=== PATIENT | male | born 1950 | race Caucasian/White ===

== ENCOUNTER 2023-08-14 11:08 | Inpatient (IN) | payer MEDICARE ==
[2023-08-14] MEDS ORDERED: Piperacillin/Tazobactam 3.375 GM in Sodium Chloride 0.9% 100 ML IVPB SCH ×2 (14:15→18:00)
[2023-08-14] MEDS ORDERED: predniSONE 20 MG TAB PO PRN (14:26)
[2023-08-14] MEDS: Acetaminophen 325 MG TAB PO PRN (15:26)
[2023-08-14] MEDS: Lactated Ringer's 1,000 ML IV SCH (15:27)
[2023-08-14] MEDS: Gabapentin 300 MG CAP PO SCH (20:35)
[2023-08-14] MEDS: Piperacillin/Tazobactam 3.375 GM in Sodium Chloride 0.9% 100 ML IVPB SCH (20:36)
[2023-08-14] MEDS: Heparin 5,000 UNITS/ML VIAL SC SCH (20:36)
[2023-08-15] MEDS: Lactated Ringer's 1,000 ML IV SCH ×3 (02:00→22:27)
[2023-08-15] MEDS: Piperacillin/Tazobactam 3.375 GM in Sodium Chloride 0.9% 100 ML IVPB SCH (06:08)
[2023-08-15] MEDS ORDERED: Lisinopril 10 MG TAB PO SCH (09:00)
[2023-08-15] MEDS: Amlodipine 5 MG TAB PO SCH (09:13)
[2023-08-15] MEDS: Saccharomyces boulardii 250 MG CAP PO SCH (09:13)
[2023-08-15] MEDS: Vancomycin HCl 125 MG Capsule PO SCH ×3 (09:13→21:12)
[2023-08-15] MEDS: Allopurinol 100 MG TAB PO SCH (09:13)
[2023-08-15] MEDS: Heparin 5,000 UNITS/ML VIAL SC SCH ×2 (09:13→21:12)
[2023-08-15] MEDS: Hydroxychloroquine Sulfate 200 MG TAB PO SCH (09:13)
[2023-08-15] MEDS: Dicyclomine 10 MG CAP PO SCH ×3 (13:16→21:12)
[2023-08-15] MEDS ORDERED: HYDROcodone/Acetaminophen 5/325 mg Tablet PO PRN (13:17)
[2023-08-15 13:29] LABS: Hematocrit 52.3 % (42.0-52.0); Hemoglobin 16.8 g/dL (14.0-18.0); Manual Diff?? YES; Mean Corpuscular HGB CONC 32.1 g/dL (32.0-36.0); Mean Corpuscular Hemoglobin 29.7 pg (27.0-31.0); Mean Corpuscular Volume 92.4 fl (78.0-98.0); Mean Platelet Volume 12.2 fL (7.4-10.4); Platelet Count 192 10x3/uL (130-400); RBC Distribution Width 16.1 % (11.5-14.5); Red Blood Cell (RBC) Count 5.66 mill/uL (4.70-6.10); White Blood Cell (WBC) Count 32.9 10x3/uL (4.8-10.8)
[2023-08-15 13:34] LABS: Delete Auto Diff?? YES
[2023-08-15 13:53] LABS: Anion Gap 21 mmol/L (10-20); BUN (Urea Nitrogen) 42 mg/dL (8.4-25.7); Calc. Creatinine Clearance 17 mL/min (70-130); Calcium 7.6 mg/dL (7.8-10.44); Carbon Dioxide 14 mmol/L (23-31); Chloride 105 mmol/L (98-107); Estimated GFR 12; Glucose 230 mg/dL (83-110); Potassium 5.3 mmol/L (3.5-5.1); Sodium 135 mmol/L (136-145)
[2023-08-15 14:03] LABS: Band 41 % (5-11); CellaVision Operator ID LAB.KB; Large Platelets 3.9 % (0-5); Lymphocytes 2 % (21-51); Monocytes 10 % (0-10); Neutrophil 45 % (42-75); Platelet Adequacy Comment Platelets Normal; Reactive Lymphocytes 2 % (0-10); Rouleaux Formation SLIGHT = 1-5 cells HPF (None Seen); Smudge Cells 2.9 %; Total Cell Count 102
[2023-08-15] MEDS: Gabapentin 300 MG CAP PO SCH (21:12)
[2023-08-16] MEDS: Vancomycin HCl 125 MG Capsule PO SCH ×4 (02:37→21:03)
[2023-08-16] MEDS: Lactated Ringer's 1,000 ML IV SCH (06:04)
[2023-08-16 08:05] LABS: Hematocrit 47.8 % (42.0-52.0); Manual Diff?? YES; Mean Corpuscular HGB CONC 33.5 g/dL (32.0-36.0); Mean Corpuscular Hemoglobin 30.8 pg (27.0-31.0); Mean Corpuscular Volume 91.9 fl (78.0-98.0); Mean Platelet Volume 11.5 fL (7.4-10.4); Platelet Count 187 10x3/uL (130-400); RBC Distribution Width 16.2 % (11.5-14.5); White Blood Cell (WBC) Count 35.3 10x3/uL (4.8-10.8)
[2023-08-16 08:14] LABS: Delete Auto Diff?? YES
[2023-08-16 08:33] LABS: Anion Gap 16 mmol/L (10-20); BUN (Urea Nitrogen) 51 mg/dL (8.4-25.7); Calc. Creatinine Clearance 15 mL/min (70-130); Calcium 7.7 mg/dL (7.8-10.44); Carbon Dioxide 16 mmol/L (23-31); Chloride 107 mmol/L (98-107); Estimated GFR 11; Glucose 186 mg/dL (83-110); Potassium 5.6 mmol/L (3.5-5.1); Sodium 133 mmol/L (136-145)
[2023-08-16] MEDS: Heparin 5,000 UNITS/ML VIAL SC SCH ×2 (08:40→21:03)
[2023-08-16] MEDS: Hydroxychloroquine Sulfate 200 MG TAB PO SCH (08:40)
[2023-08-16] MEDS: Dicyclomine 10 MG CAP PO SCH ×4 (08:40→21:03)
[2023-08-16] MEDS: Saccharomyces boulardii 250 MG CAP PO SCH (08:41)
[2023-08-16] MEDS: Amlodipine 5 MG TAB PO SCH (08:41)
[2023-08-16] MEDS ORDERED: Glucagon 1 MG/ML KIT IM PRN (08:43)
[2023-08-16] MEDS ORDERED: Dextrose 5% in Water 1,000 ML IV PRN (08:43)
[2023-08-16] MEDS ORDERED: Dextrose 50% Abboject 50 ML SYRINGE SLOW IVP PRN (08:43)
[2023-08-16] MEDS ORDERED: Insulin Regular 300 UNITS/3 ML VIAL IVP SCH (08:45)
[2023-08-16 08:48] LABS: Band 18 % (5-11); CellaVision Operator ID LAB.KW3; Lymphocytes 3 % (21-51); Monocytes 8 % (0-10); Neutrophil 71 % (42-75); Platelet Adequacy Comment Platelets Normal; Polychromasia SLIGHT = 2-3 cells HPF (0-2); Total Cell Count 100
[2023-08-16] MEDS ORDERED: CALCIUM GLUC 1 GM/NS 50 ML 1 GM in Premix 1 BAG IVPB SCH (09:00)
[2023-08-16] MEDS ORDERED: LOKELMA 10 GM PACKET PO SCH (09:30)
[2023-08-16] MEDS ORDERED: LOKELMA 5 GM PACKET PO SCH (09:45)
[2023-08-16] MEDS: Sodium Bicarbonate Tab 325 MG TAB PO SCH ×2 (09:51→21:03)
[2023-08-16] MEDS: Sodium Bicarbonate 75 MEQ in Dextrose 5 %-0.45 % NaCl 1,000 ML IV SCH ×2 (11:06→21:02)
[2023-08-16 12:14] LABS: Chloride 107 mmol/L (98-107); Potassium 4.8 mmol/L (3.5-5.1); Sodium 135 mmol/L (136-145)
[2023-08-16 12:15] LABS: Calcium 7.9 mg/dL (7.8-10.44); Glucose 96 mg/dL (83-110)
[2023-08-16 12:17] LABS: Anion Gap 17 mmol/L (10-20); Carbon Dioxide 16 mmol/L (23-31)
[2023-08-16 12:18] LABS: Calc. Creatinine Clearance 16 mL/min (70-130); Estimated GFR 12
[2023-08-16 12:19] LABS: BUN (Urea Nitrogen) 51 mg/dL (8.4-25.7)
[2023-08-16] MEDS: HumaLOG 300 UNITS/3 ML VIAL SC PRN (17:38)
[2023-08-16] MEDS: Gabapentin 300 MG CAP PO SCH (21:03)
[2023-08-17] MEDS: Vancomycin HCl 125 MG Capsule PO SCH ×4 (03:54→21:46)
[2023-08-17 04:21] LABS: Hematocrit 41.9 % (42.0-52.0); Manual Diff?? YES; Mean Corpuscular HGB CONC 33.4 g/dL (32.0-36.0); Mean Corpuscular Hemoglobin 30.4 pg (27.0-31.0); Mean Corpuscular Volume 90.9 fl (78.0-98.0); Mean Platelet Volume 11.6 fL (7.4-10.4); Platelet Count 204 10x3/uL (130-400); RBC Distribution Width 16.2 % (11.5-14.5); Red Blood Cell (RBC) Count 4.61 mill/uL (4.70-6.10); White Blood Cell (WBC) Count 29.8 10x3/uL (4.8-10.8)
[2023-08-17] MEDS: Sodium Bicarbonate 75 MEQ in Dextrose 5 %-0.45 % NaCl 1,000 ML IV SCH ×3 (04:28→21:45)
[2023-08-17 04:31] LABS: Delete Auto Diff?? YES
[2023-08-17 04:44] LABS: Anion Gap 14 mmol/L (10-20); BUN (Urea Nitrogen) 57 mg/dL (8.4-25.7); Calc. Creatinine Clearance 19 mL/min (70-130); Calcium 7.2 mg/dL (7.8-10.44); Carbon Dioxide 19 mmol/L (23-31); Chloride 103 mmol/L (98-107); Estimated GFR 14; Glucose 194 mg/dL (83-110); Potassium 4.7 mmol/L (3.5-5.1); Sodium 131 mmol/L (136-145)
[2023-08-17 05:11] LABS: Band 6 % (5-11); CellaVision Operator ID LAB.JMM; Lymphocytes 2 % (21-51); Macrocytosis SLIGHT = 6-15 cells HPF (0-5); Metamyelocyte 3 % (0-0); Monocytes 6 % (0-10); Myelocyte 2 % (0-0); Neutrophil 81 % (42-75); Platelet Adequacy Comment Platelets Normal; Polychromasia SLIGHT = 2-3 cells HPF (0-2); Smudge Cells 11.8 %; Total Cell Count 102
[2023-08-17 05:17] LABS: Hemoglobin A1c 6.7 % (4.0-6.0)
[2023-08-17] MEDS: Saccharomyces boulardii 250 MG CAP PO SCH (07:53)
[2023-08-17] MEDS: Heparin 5,000 UNITS/ML VIAL SC SCH ×2 (07:53→21:46)
[2023-08-17] MEDS: Amlodipine 5 MG TAB PO SCH (07:53)
[2023-08-17] MEDS: Sodium Bicarbonate Tab 325 MG TAB PO SCH ×2 (07:53→21:46)
[2023-08-17] MEDS: Dicyclomine 10 MG CAP PO SCH ×4 (07:54→21:46)
[2023-08-17] MEDS: Hydroxychloroquine Sulfate 200 MG TAB PO SCH (07:54)
[2023-08-17] MEDS: Allopurinol 100 MG TAB PO SCH (07:54)
[2023-08-17] MEDS: HumaLOG 300 UNITS/3 ML VIAL SC PRN (11:52)
[2023-08-17] MEDS: Gabapentin 300 MG CAP PO SCH (21:46)
[2023-08-17 23:37] LABS: Adenovirus F 40-41 Not Detected (Not Detected); Astrovirus Not Detected (Not Detected); C. difficile toxin A+B DETECTED (Not Detected); Campylobacter by PCR Not Detected (Not Detected); Cryptosporidium Not Detected (Not Detected); Cyclospora cayetanensis Not Detected (Not Detected); Entamoeba histolytica Not Detected (Not Detected); Enteroaggregative E. coli Not Detected (Not Detected); Enteropathogenic E. coli Not Detected (Not Detected); Enterotoxigenic E. coli Not Detected (Not Detected); Giardia lamblia Not Detected (Not Detected); Norovirus GI-GII Not Detected (Not Detected); Plesiomonas shigelloides Not Detected (Not Detected); Rotavirus A Not Detected (Not Detected); Salmonella Not Detected (Not Detected); Sapovirus Not Detected (Not Detected); Shiga-toxin-producing E coli Not Detected (Not Detected); Shigella/Enteroinvasive E coli Not Detected (Not Detected); Vibrio Not Detected (Not Detected); Vibrio cholerae Not Detected (Not Detected); Yersinia enterocolitica Not Detected (Not Detected)
[2023-08-18] MEDS: Vancomycin HCl 125 MG Capsule PO SCH ×4 (02:15→19:33)
[2023-08-18 05:24] LABS: Hemoglobin 14.3 g/dL (14.0-18.0); Manual Diff?? YES; Mean Corpuscular HGB CONC 31.8 g/dL (32.0-36.0); Mean Corpuscular Hemoglobin 30.1 pg (27.0-31.0); Mean Corpuscular Volume 94.7 fl (78.0-98.0); Mean Platelet Volume 11.5 fL (7.4-10.4); Platelet Count 190 10x3/uL (130-400); Red Blood Cell (RBC) Count 4.75 mill/uL (4.70-6.10); White Blood Cell (WBC) Count 21.4 10x3/uL (4.8-10.8)
[2023-08-18 05:28] LABS: Delete Auto Diff?? YES
[2023-08-18] MEDS: Sodium Bicarbonate 75 MEQ in Dextrose 5 %-0.45 % NaCl 1,000 ML IV SCH ×2 (06:00→15:13)
[2023-08-18] MEDS: HumaLOG 300 UNITS/3 ML VIAL SC PRN (06:01)
[2023-08-18 06:10] LABS: Band 2 % (5-11); Burr Cells SLIGHT = 2-5 cells HPF (0-1); CellaVision Operator ID lab.abc; Eosinophils 1 % (0-10); Lymphocytes 5 % (21-51); Monocytes 8 % (0-10); Neutrophil 84 % (42-75); Platelet Adequacy Comment Platelets Normal; Polychromasia SLIGHT = 2-3 cells HPF (0-2); Smudge Cells 14.1 %; Total Cell Count 99
[2023-08-18 07:20] LABS: BUN (Urea Nitrogen) 57 mg/dL (8.4-25.7); Calc. Creatinine Clearance 24 mL/min (70-130); Carbon Dioxide 15 mmol/L (23-31); Chloride 104 mmol/L (98-107); Estimated GFR 20; Glucose 156 mg/dL (83-110); Potassium 4.6 mmol/L (3.5-5.1); Sodium 132 mmol/L (136-145)
[2023-08-18 07:22] LABS: Anion Gap 18 mmol/L (10-20)
[2023-08-18] MEDS: Amlodipine 5 MG TAB PO SCH (08:58)
[2023-08-18] MEDS: Hydroxychloroquine Sulfate 200 MG TAB PO SCH (08:58)
[2023-08-18] MEDS: Dicyclomine 10 MG CAP PO SCH ×4 (08:58→19:33)
[2023-08-18] MEDS: Heparin 5,000 UNITS/ML VIAL SC SCH ×2 (08:58→19:33)
[2023-08-18] MEDS: Sodium Bicarbonate Tab 325 MG TAB PO SCH ×2 (08:58→19:33)
[2023-08-18] MEDS: Saccharomyces boulardii 250 MG CAP PO SCH (08:58)
[2023-08-18] MEDS: Gabapentin 300 MG CAP PO SCH (19:33)
[2023-08-19] MEDS: Sodium Bicarbonate 75 MEQ in Dextrose 5 %-0.45 % NaCl 1,000 ML IV SCH ×4 (00:27→18:47)
[2023-08-19] MEDS: Vancomycin HCl 125 MG Capsule PO SCH ×4 (04:01→21:33)
[2023-08-19] MEDS: HumaLOG 300 UNITS/3 ML VIAL SC PRN ×2 (06:19→17:08)
[2023-08-19 06:40] LABS: Hematocrit 45.4 % (42.0-52.0); Hemoglobin 14.4 g/dL (14.0-18.0); Manual Diff?? YES; Mean Corpuscular HGB CONC 31.7 g/dL (32.0-36.0); Mean Corpuscular Hemoglobin 29.8 pg (27.0-31.0); Mean Platelet Volume 11.3 fL (7.4-10.4); Platelet Count 222 10x3/uL (130-400); RBC Distribution Width 15.9 % (11.5-14.5); Red Blood Cell (RBC) Count 4.83 mill/uL (4.70-6.10); White Blood Cell (WBC) Count 14.3 10x3/uL (4.8-10.8)
[2023-08-19 07:01] LABS: Delete Auto Diff?? YES
[2023-08-19 07:11] LABS: Anion Gap 17 mmol/L (10-20); BUN (Urea Nitrogen) 50 mg/dL (8.4-25.7); Calc. Creatinine Clearance 31 mL/min (70-130); Carbon Dioxide 19 mmol/L (23-31); Chloride 102 mmol/L (98-107); Estimated GFR 27; Glucose 186 mg/dL (83-110); Potassium 4.2 mmol/L (3.5-5.1); Sodium 134 mmol/L (136-145)
[2023-08-19 07:39] LABS: Calcium 6.7 mg/dL (7.8-10.44)
[2023-08-19 07:49] LABS: Band 12 % (5-11); CellaVision Operator ID LAB.KW3; Lymphocytes 5 % (21-51); Monocytes 2 % (0-10); Neutrophil 81 % (42-75); Platelet Adequacy Comment Platelets Normal; Polychromasia SLIGHT = 2-3 cells HPF (0-2); Total Cell Count 101
[2023-08-19] MEDS ORDERED: Calcium Gluconate 4.6 MEQ in Sodium Chloride 0.9% 100 ML IVPB SCH (08:09)
[2023-08-19] MEDS: Saccharomyces boulardii 250 MG CAP PO SCH (09:01)
[2023-08-19] MEDS: Sodium Bicarbonate Tab 325 MG TAB PO SCH ×2 (09:01→21:33)
[2023-08-19] MEDS: Dicyclomine 10 MG CAP PO SCH ×4 (09:01→21:33)
[2023-08-19] MEDS: Allopurinol 100 MG TAB PO SCH (09:01)
[2023-08-19] MEDS: Hydroxychloroquine Sulfate 200 MG TAB PO SCH (09:02)
[2023-08-19] MEDS: Amlodipine 5 MG TAB PO SCH (09:02)
[2023-08-19] MEDS: Heparin 5,000 UNITS/ML VIAL SC SCH ×2 (09:02→21:34)
[2023-08-19] MEDS: Gabapentin 300 MG CAP PO SCH (21:32)
[2023-08-20 00:22] LABS: Phosphorus 3.4 mg/dL (2.3-4.7)
[2023-08-20] MEDS: Vancomycin HCl 125 MG Capsule PO SCH ×4 (02:42→20:26)
[2023-08-20] MEDS: Sodium Bicarbonate 75 MEQ in Dextrose 5 %-0.45 % NaCl 1,000 ML IV SCH ×2 (02:44→12:32)
[2023-08-20 05:05] LABS: Hematocrit 46.6 % (42.0-52.0); Hemoglobin 15.3 g/dL (14.0-18.0); Manual Diff?? YES; Mean Corpuscular HGB CONC 32.8 g/dL (32.0-36.0); Mean Corpuscular Hemoglobin 30.3 pg (27.0-31.0); Mean Corpuscular Volume 92.3 fl (78.0-98.0); Mean Platelet Volume 11.2 fL (7.4-10.4); Platelet Count 237 10x3/uL (130-400); RBC Distribution Width 15.6 % (11.5-14.5); Red Blood Cell (RBC) Count 5.05 mill/uL (4.70-6.10); White Blood Cell (WBC) Count 17.2 10x3/uL (4.8-10.8)
[2023-08-20 05:09] LABS: Delete Auto Diff?? YES
[2023-08-20 05:18] LABS: Anion Gap 16 mmol/L (10-20); BUN (Urea Nitrogen) 38 mg/dL (8.4-25.7); Calc. Creatinine Clearance 39 mL/min (70-130); Carbon Dioxide 23 mmol/L (23-31); Chloride 99 mmol/L (98-107); Estimated GFR 35; Glucose 175 mg/dL (83-110); Potassium 4.1 mmol/L (3.5-5.1); Sodium 134 mmol/L (136-145)
[2023-08-20 05:21] LABS: Calcium 6.7 mg/dL (7.8-10.44); Critical Call Chemistry NUR.BR6@0521
[2023-08-20] MEDS: HumaLOG 300 UNITS/3 ML VIAL SC PRN (06:30)
[2023-08-20 06:47] LABS: Anisocytosis SLIGHT = 6-15 cells HPF (0-5); Band 2 % (5-11); CellaVision Operator ID lab.sh2; Eosinophils 1 % (0-10); Lymphocytes 7 % (21-51); Monocytes 7 % (0-10); Neutrophil 83 % (42-75); Platelet Adequacy Comment Platelets Normal; Polychromasia SLIGHT = 2-3 cells HPF (0-2); Stomatocytes SLIGHT = 2-5 cells HPF (0-1); Total Cell Count 100
[2023-08-20] MEDS ORDERED: CALCIUM GLUC 1 GM/NS 50 ML 1 GM in Premix 1 BAG IVPB SCH (08:15)
[2023-08-20] MEDS: Sodium Bicarbonate Tab 325 MG TAB PO SCH ×2 (09:12→20:25)
[2023-08-20] MEDS: Dicyclomine 10 MG CAP PO SCH ×4 (09:13→20:25)
[2023-08-20] MEDS: Saccharomyces boulardii 250 MG CAP PO SCH (09:13)
[2023-08-20] MEDS: Hydroxychloroquine Sulfate 200 MG TAB PO SCH (09:13)
[2023-08-20] MEDS: Amlodipine 5 MG TAB PO SCH (09:13)
[2023-08-20] MEDS: Heparin 5,000 UNITS/ML VIAL SC SCH ×2 (09:14→20:26)
[2023-08-20] MEDS ORDERED: Sodium Bicarbonate 75 MEQ in Dextrose 5 %-0.45 % NaCl 1,000 ML IV SCH (10:27)
[2023-08-20] MEDS: Sodium Chloride 0.9% 1,000 ML IV SCH (11:49)
[2023-08-20] MEDS: Gabapentin 300 MG CAP PO SCH (20:26)
[2023-08-21] MEDS: Sodium Chloride 0.9% 1,000 ML IV SCH ×3 (02:20→12:41)
[2023-08-21] MEDS: Vancomycin HCl 125 MG Capsule PO SCH ×4 (02:24→20:34)
[2023-08-21] MEDS: Melatonin 3 MG TAB PO PRN ×2 (03:17→20:34)
[2023-08-21] MEDS: Allopurinol 100 MG TAB PO SCH (08:12)
[2023-08-21] MEDS: Sodium Bicarbonate Tab 325 MG TAB PO SCH ×2 (08:12→20:33)
[2023-08-21] MEDS: Amlodipine 5 MG TAB PO SCH (08:12)
[2023-08-21] MEDS: Heparin 5,000 UNITS/ML VIAL SC SCH ×2 (08:12→20:35)
[2023-08-21] MEDS: Saccharomyces boulardii 250 MG CAP PO SCH (08:12)
[2023-08-21] MEDS: Hydroxychloroquine Sulfate 200 MG TAB PO SCH (08:12)
[2023-08-21] MEDS: Dicyclomine 10 MG CAP PO SCH ×4 (09:58→20:35)
[2023-08-21 10:53] LABS: #Basophils 0.1 thou/uL (0.0-0.2); #Eosinphils 0.1 thou/uL (0.0-0.7); #Monocytes 1.9 thou/uL (0.11-0.59); #Neutrophils 18.5 thou/uL (1.40-6.50); %Basophils 0.3 % (0.0-1.0); %Eosinophils 0.3 % (0.0-10.0); %Lymphocytes 4.6 % (21.0-51.0); %Monocytes 8.7 % (0.0-10.0); %Neutrophils 84.1 % (42.0-75.0); Hematocrit 45.3 % (42.0-52.0); Hemoglobin 14.6 g/dL (14.0-18.0); Mean Corpuscular HGB CONC 32.2 g/dL (32.0-36.0); Mean Corpuscular Hemoglobin 30.2 pg (27.0-31.0); Mean Corpuscular Volume 93.6 fl (78.0-98.0); Mean Platelet Volume 10.6 fL (7.4-10.4); Platelet Count 309 10x3/uL (130-400); RBC Distribution Width 15.6 % (11.5-14.5); Red Blood Cell (RBC) Count 4.84 mill/uL (4.70-6.10)
[2023-08-21 11:21] LABS: Anion Gap 17 mmol/L (10-20); BUN (Urea Nitrogen) 33 mg/dL (8.4-25.7); Calc. Creatinine Clearance 42 mL/min (70-130); Calcium 7.1 mg/dL (7.8-10.44); Carbon Dioxide 25 mmol/L (23-31); Chloride 98 mmol/L (98-107); Estimated GFR 38; Glucose 107 mg/dL (83-110); Potassium 4.4 mmol/L (3.5-5.1); Sodium 136 mmol/L (136-145)
[2023-08-21] MEDS: metroNIDAZOLE 500 MG in Premix 1 BAG IVPB SCH ×2 (13:09→20:34)
[2023-08-21] MEDS: Acetaminophen 325 MG TAB PO PRN (17:48)
[2023-08-21] MEDS: Gabapentin 300 MG CAP PO SCH (20:34)
[2023-08-22] MEDS: Sodium Chloride 0.9% 1,000 ML IV SCH (02:16)
[2023-08-22] MEDS: Acetaminophen 325 MG TAB PO PRN ×2 (05:16→20:54)
[2023-08-22] MEDS: metroNIDAZOLE 500 MG in Premix 1 BAG IVPB SCH ×3 (05:16→22:00)
[2023-08-22] MEDS ORDERED: HYDROcodone/Acetaminophen 5/325 mg Tablet PO PRN (08:24)
[2023-08-22] MEDS: Hydroxychloroquine Sulfate 200 MG TAB PO SCH (08:48)
[2023-08-22] MEDS: Saccharomyces boulardii 250 MG CAP PO SCH (08:49)
[2023-08-22] MEDS: Amlodipine 5 MG TAB PO SCH (08:50)
[2023-08-22] MEDS: Vancomycin HCl 125 MG Capsule PO SCH ×4 (08:50→20:54)
[2023-08-22] MEDS: Heparin 5,000 UNITS/ML VIAL SC SCH ×2 (08:51→20:53)
[2023-08-22] MEDS: Dicyclomine 10 MG CAP PO SCH ×4 (08:51→20:53)
[2023-08-22] MEDS: Sodium Bicarbonate Tab 325 MG TAB PO SCH (08:52)
[2023-08-22 09:00] LABS: Hematocrit 42.6 % (42.0-52.0); Hemoglobin 14.1 g/dL (14.0-18.0); Manual Diff?? YES; Mean Corpuscular HGB CONC 33.1 g/dL (32.0-36.0); Mean Corpuscular Hemoglobin 30.5 pg (27.0-31.0); Mean Corpuscular Volume 92.2 fl (78.0-98.0); Mean Platelet Volume 10.2 fL (7.4-10.4); Platelet Count 371 10x3/uL (130-400); RBC Distribution Width 15.5 % (11.5-14.5); Red Blood Cell (RBC) Count 4.62 mill/uL (4.70-6.10); White Blood Cell (WBC) Count 25.1 10x3/uL (4.8-10.8)
[2023-08-22 09:17] LABS: ALT (SGPT) 29 U/L (8-55); AST (SGOT) 30 U/L (5-34); Albumin 2.6 g/dL (3.4-4.8); Alkaline Phosphatase 78 U/L (40-110); Anion Gap 15 mmol/L (10-20); BUN (Urea Nitrogen) 35 mg/dL (8.4-25.7); Bilirubin, Total 0.7 mg/dL (0.2-1.2); CRP (Inflammatory) 8.82 mg/dL (= or < 0.5); Calc. Creatinine Clearance 42 mL/min (70-130); Calcium 7.4 mg/dL (7.8-10.44); Carbon Dioxide 27 mmol/L (23-31); Chloride 98 mmol/L (98-107); Estimated GFR 39; Glucose 141 mg/dL (83-110); Potassium 4.5 mmol/L (3.5-5.1); Protein, Total 4.6 g/dL (5.8-8.1); Sodium 135 mmol/L (136-145)
[2023-08-22 09:28] LABS: Delete Auto Diff?? YES
[2023-08-22 10:05] LABS: Anisocytosis SLIGHT = 6-15 cells HPF (0-5); Band 1 % (5-11); CellaVision Operator ID LAB.NR; Eosinophils 1 % (0-10); Lymphocytes 1 % (21-51); Monocytes 4 % (0-10); Neutrophil 93 % (42-75); Platelet Adequacy Comment Platelets Normal; Polychromasia SLIGHT = 2-3 cells HPF (0-2); Total Cell Count 100
[2023-08-22] MEDS: Morphine 2 MG/ML VIAL SLOW IVP PRN (13:49)
[2023-08-22] MEDS ORDERED: Tamsulosin HCl 0.4 MG CAP PO SCH (16:45)
[2023-08-22] MEDS ORDERED: Mag-Al 1200 mg/1200 mg/30 ML UDCUP PO PRN (16:48)
[2023-08-22] MEDS: Gabapentin 300 MG CAP PO SCH (20:53)
[2023-08-22] MEDS: Albumin 25% 25 GM (100 mL) BOT IVPB SCH (20:54)
[2023-08-22] MEDS: Melatonin 3 MG TAB PO PRN (20:54)
[2023-08-23] MEDS: metroNIDAZOLE 500 MG in Premix 1 BAG IVPB SCH ×3 (05:25→21:58)
[2023-08-23 07:07] LABS: #Eosinphils 0.1 thou/uL (0.0-0.7); #Monocytes 1.8 thou/uL (0.11-0.59); #Neutrophils 18.9 thou/uL (1.40-6.50); %Basophils 0.1 % (0.0-1.0); %Eosinophils 0.5 % (0.0-10.0); %Lymphocytes 4.9 % (21.0-51.0); %Neutrophils 85.6 % (42.0-75.0); Hematocrit 39.5 % (42.0-52.0); Hemoglobin 12.9 g/dL (14.0-18.0); Mean Corpuscular HGB CONC 32.7 g/dL (32.0-36.0); Mean Corpuscular Hemoglobin 30.4 pg (27.0-31.0); Mean Corpuscular Volume 92.9 fl (78.0-98.0); Mean Platelet Volume 10.4 fL (7.4-10.4); Platelet Count 313 10x3/uL (130-400); RBC Distribution Width 15.3 % (11.5-14.5); Red Blood Cell (RBC) Count 4.25 mill/uL (4.70-6.10)
[2023-08-23 07:32] LABS: ALT (SGPT) 21 U/L (8-55); AST (SGOT) 25 U/L (5-34); Albumin 2.8 g/dL (3.4-4.8); Alkaline Phosphatase 65 U/L (40-110); Anion Gap 15 mmol/L (10-20); BUN (Urea Nitrogen) 34 mg/dL (8.4-25.7); Bilirubin, Total 0.7 mg/dL (0.2-1.2); Calc. Creatinine Clearance 38 mL/min (70-130); Calcium 7.5 mg/dL (7.8-10.44); Carbon Dioxide 27 mmol/L (23-31); Chloride 99 mmol/L (98-107); Estimated GFR 34; Globulin 1.8 g/dL (2.4-3.5); Glucose 116 mg/dL (83-110); Magnesium 2.1 mg/dL (1.6-2.6); Potassium 4.3 mmol/L (3.5-5.1); Protein, Total 4.6 g/dL (5.8-8.1); Sodium 137 mmol/L (136-145)
[2023-08-23] MEDS: Albumin 25% 25 GM (100 mL) BOT IVPB SCH ×3 (09:41→20:18)
[2023-08-23] MEDS: Saccharomyces boulardii 250 MG CAP PO SCH (09:41)
[2023-08-23] MEDS: Vancomycin HCl 125 MG Capsule PO SCH ×5 (09:41→20:18)
[2023-08-23] MEDS: Amlodipine 5 MG TAB PO SCH (09:41)
[2023-08-23] MEDS: Heparin 5,000 UNITS/ML VIAL SC SCH ×2 (09:41→20:18)
[2023-08-23] MEDS: Dicyclomine 10 MG CAP PO SCH ×4 (09:41→20:18)
[2023-08-23] MEDS: Tamsulosin HCl 0.4 MG CAP PO SCH (09:41)
[2023-08-23] MEDS: Hydroxychloroquine Sulfate 200 MG TAB PO SCH (09:41)
[2023-08-23] MEDS: Allopurinol 100 MG TAB PO SCH (09:41)
[2023-08-23] MEDS: Acetaminophen 325 MG TAB PO PRN (10:01)
[2023-08-23] MEDS ORDERED: Acetaminophen 500 MG TAB PO PRN (10:19)
[2023-08-23] MEDS ORDERED: Sodium Chloride 0.9% 1,000 ML IV SCH (10:30)
[2023-08-23] MEDS ORDERED: Vancomycin HCl 125 MG Capsule PO SCH (13:00)
[2023-08-23] MEDS: Morphine 2 MG/ML VIAL SLOW IVP PRN (14:25)
[2023-08-23] MEDS ORDERED: Furosemide 40 MG (4 mL) VIAL SLOW IVP SCH (17:45)
[2023-08-23] MEDS ORDERED: Ipratropium/Albuterol 3 ML NEB NEB SCH (17:45)
[2023-08-23] MEDS: Cefepime 2 GM in Sodium Chloride 0.9% 100 ML IVPB SCH (18:03)
[2023-08-23] MEDS: Gabapentin 300 MG CAP PO SCH (20:17)
[2023-08-23] MEDS ORDERED: Ipratropium/Albuterol 3 ML NEB NEB PRN (23:40)
[2023-08-24 04:18] LABS: #Basophils 0.1 thou/uL (0.0-0.2); #Monocytes 2.2 thou/uL (0.11-0.59); #Neutrophils 19.9 thou/uL (1.40-6.50); %Basophils 0.2 % (0.0-1.0); %Eosinophils 0.1 % (0.0-10.0); %Lymphocytes 3.3 % (21.0-51.0); %Monocytes 9.4 % (0.0-10.0); %Neutrophils 86.3 % (42.0-75.0); Hematocrit 35.7 % (42.0-52.0); Hemoglobin 11.6 g/dL (14.0-18.0); Mean Corpuscular HGB CONC 32.5 g/dL (32.0-36.0); Mean Corpuscular Hemoglobin 30.3 pg (27.0-31.0); Mean Corpuscular Volume 93.2 fl (78.0-98.0); Mean Platelet Volume 10.2 fL (7.4-10.4); Platelet Count 315 10x3/uL (130-400); RBC Distribution Width 15.5 % (11.5-14.5); Red Blood Cell (RBC) Count 3.83 mill/uL (4.70-6.10); White Blood Cell (WBC) Count 23.1 10x3/uL (4.8-10.8)
[2023-08-24 05:01] LABS: Anion Gap 19 mmol/L (10-20); BUN (Urea Nitrogen) 32 mg/dL (8.4-25.7); Calc. Creatinine Clearance 37 mL/min (70-130); Calcium 7.9 mg/dL (7.8-10.44); Carbon Dioxide 24 mmol/L (23-31); Chloride 100 mmol/L (98-107); Estimated GFR 32; Glucose 131 mg/dL (83-110); Potassium 3.9 mmol/L (3.5-5.1); Sodium 139 mmol/L (136-145)
[2023-08-24] MEDS: metroNIDAZOLE 500 MG in Premix 1 BAG IVPB SCH ×3 (05:47→21:53)
[2023-08-24] MEDS: Furosemide 40 MG (4 mL) VIAL SLOW IVP SCH ×2 (05:47→15:31)
[2023-08-24] MEDS: Cefepime 2 GM in Sodium Chloride 0.9% 100 ML IVPB SCH (05:47)
[2023-08-24] MEDS: Vancomycin HCl 125 MG Capsule PO SCH ×3 (10:02→21:53)
[2023-08-24] MEDS: Saccharomyces boulardii 250 MG CAP PO SCH (10:02)
[2023-08-24] MEDS: Hydroxychloroquine Sulfate 200 MG TAB PO SCH (10:03)
[2023-08-24] MEDS: Heparin 5,000 UNITS/ML VIAL SC SCH ×2 (10:03→21:53)
[2023-08-24] MEDS: Tamsulosin HCl 0.4 MG CAP PO SCH (10:03)
[2023-08-24] MEDS: Amlodipine 5 MG TAB PO SCH (10:03)
[2023-08-24] MEDS: Dicyclomine 10 MG CAP PO SCH ×4 (10:08→21:52)
[2023-08-24] MEDS ORDERED: predniSONE 20 MG TAB PO SCH (11:15)
[2023-08-24] MEDS: Albumin 25% 25 GM (100 mL) BOT IVPB SCH ×2 (11:38→19:35)
[2023-08-24] MEDS ORDERED: cefTRIAXone\\ROCEPHIN 2 GM in Sodium Chloride 0.9% 100 ML IVPB SCH (17:00)
[2023-08-24] MEDS: HumaLOG 300 UNITS/3 ML VIAL SC PRN (18:01)
[2023-08-24] MEDS: Gabapentin 300 MG CAP PO SCH (21:53)
[2023-08-25] MEDS: Albumin 25% 25 GM (100 mL) BOT IVPB SCH ×2 (01:35→07:26)
[2023-08-25 04:46] LABS: #Monocytes 1.5 thou/uL (0.11-0.59); #Neutrophils 17.7 thou/uL (1.40-6.50); %Basophils 0.1 % (0.0-1.0); %Lymphocytes 2.7 % (21.0-51.0); %Monocytes 7.7 % (0.0-10.0); %Neutrophils 88.6 % (42.0-75.0); Hematocrit 34.8 % (42.0-52.0); Hemoglobin 11.2 g/dL (14.0-18.0); Mean Corpuscular HGB CONC 32.2 g/dL (32.0-36.0); Mean Corpuscular Hemoglobin 29.9 pg (27.0-31.0); Mean Platelet Volume 10.4 fL (7.4-10.4); Platelet Count 300 10x3/uL (130-400); RBC Distribution Width 15.6 % (11.5-14.5); Red Blood Cell (RBC) Count 3.74 mill/uL (4.70-6.10)
[2023-08-25 05:57] LABS: Anion Gap 20 mmol/L (10-20); BUN (Urea Nitrogen) 33 mg/dL (8.4-25.7); Calc. Creatinine Clearance 42 mL/min (70-130); Calcium 8.1 mg/dL (7.8-10.44); Carbon Dioxide 24 mmol/L (23-31); Chloride 99 mmol/L (98-107); Estimated GFR 38; Glucose 196 mg/dL (83-110); Potassium 3.9 mmol/L (3.5-5.1); Sodium 139 mmol/L (136-145)
[2023-08-25] MEDS: metroNIDAZOLE 500 MG in Premix 1 BAG IVPB SCH ×2 (07:26→13:32)
[2023-08-25] MEDS: predniSONE 20 MG TAB PO SCH (09:05)
[2023-08-25] MEDS: Saccharomyces boulardii 250 MG CAP PO SCH (09:07)
[2023-08-25] MEDS: Tamsulosin HCl 0.4 MG CAP PO SCH (09:08)
[2023-08-25] MEDS: Amlodipine 5 MG TAB PO SCH (09:08)
[2023-08-25] MEDS: Vancomycin HCl 125 MG Capsule PO SCH ×4 (09:09→20:43)
[2023-08-25] MEDS: Dicyclomine 10 MG CAP PO SCH ×4 (09:09→20:44)
[2023-08-25] MEDS: Allopurinol 100 MG TAB PO SCH (09:09)
[2023-08-25] MEDS: Heparin 5,000 UNITS/ML VIAL SC SCH ×2 (09:09→20:44)
[2023-08-25] MEDS: Hydroxychloroquine Sulfate 200 MG TAB PO SCH (09:10)
[2023-08-25] MEDS ORDERED: Furosemide 40 MG (4 mL) VIAL IVP SCH (15:44)
[2023-08-25] MEDS: Gabapentin 300 MG CAP PO SCH (20:43)
[2023-08-26] MEDS: HumaLOG 300 UNITS/3 ML VIAL SC PRN ×4 (05:01→20:10)
[2023-08-26 06:24] LABS: #Monocytes 1.6 thou/uL (0.11-0.59); %Basophils 0.1 % (0.0-1.0); %Lymphocytes 4.5 % (21.0-51.0); %Monocytes 8.9 % (0.0-10.0); %Neutrophils 85.7 % (42.0-75.0); Hematocrit 39.9 % (42.0-52.0); Mean Corpuscular HGB CONC 32.6 g/dL (32.0-36.0); Mean Corpuscular Hemoglobin 30.5 pg (27.0-31.0); Mean Corpuscular Volume 93.7 fl (78.0-98.0); Mean Platelet Volume 10.7 fL (7.4-10.4); Platelet Count 398 10x3/uL (130-400); Red Blood Cell (RBC) Count 4.26 mill/uL (4.70-6.10); White Blood Cell (WBC) Count 17.4 10x3/uL (4.8-10.8)
[2023-08-26 06:35] LABS: Anion Gap 17 mmol/L (10-20); BUN (Urea Nitrogen) 35 mg/dL (8.4-25.7); Calc. Creatinine Clearance 49 mL/min (70-130); Calcium 7.8 mg/dL (7.8-10.44); Carbon Dioxide 27 mmol/L (23-31); Chloride 100 mmol/L (98-107); Estimated GFR 41; Glucose 278 mg/dL (83-110); Potassium 3.9 mmol/L (3.5-5.1); Sodium 140 mmol/L (136-145)
[2023-08-26] MEDS: Saccharomyces boulardii 250 MG CAP PO SCH (08:06)
[2023-08-26] MEDS: predniSONE 20 MG TAB PO SCH (08:06)
[2023-08-26] MEDS: Tamsulosin HCl 0.4 MG CAP PO SCH (08:06)
[2023-08-26] MEDS: Dicyclomine 10 MG CAP PO SCH ×4 (08:06→20:09)
[2023-08-26] MEDS: Hydroxychloroquine Sulfate 200 MG TAB PO SCH (08:06)
[2023-08-26] MEDS: Vancomycin HCl 125 MG Capsule PO SCH ×4 (08:06→20:09)
[2023-08-26] MEDS: Heparin 5,000 UNITS/ML VIAL SC SCH ×2 (08:07→20:09)
[2023-08-26] MEDS: Amlodipine 5 MG TAB PO SCH (08:07)
[2023-08-26] MEDS: Furosemide 40 MG (4 mL) VIAL IVP SCH (08:07)
[2023-08-26] MEDS ORDERED: Furosemide 40 MG (4 mL) VIAL IVP SCH (14:00)
[2023-08-26 17:09] VITALS: BMI 31.9
[2023-08-26] MEDS: Gabapentin 300 MG CAP PO SCH (20:09)
[2023-08-26] MEDS: Melatonin 3 MG TAB PO PRN (20:09)
[2023-08-27 04:58] LABS: #Monocytes 2.1 thou/uL (0.11-0.59); #Neutrophils 11.4 thou/uL (1.40-6.50); %Basophils 0.1 % (0.0-1.0); %Lymphocytes 6.4 % (21.0-51.0); %Monocytes 14.1 % (0.0-10.0); %Neutrophils 78.4 % (42.0-75.0); Hematocrit 40.8 % (42.0-52.0); Hemoglobin 13.5 g/dL (14.0-18.0); Mean Corpuscular HGB CONC 33.1 g/dL (32.0-36.0); Mean Corpuscular Hemoglobin 30.5 pg (27.0-31.0); Mean Corpuscular Volume 92.3 fl (78.0-98.0); Mean Platelet Volume 10.2 fL (7.4-10.4); Platelet Count 423 10x3/uL (130-400); RBC Distribution Width 15.9 % (11.5-14.5); Red Blood Cell (RBC) Count 4.42 mill/uL (4.70-6.10); White Blood Cell (WBC) Count 14.6 10x3/uL (4.8-10.8)
[2023-08-27] MEDS: HumaLOG 300 UNITS/3 ML VIAL SC PRN ×3 (05:22→20:43)
[2023-08-27 05:24] LABS: Anion Gap 14 mmol/L (10-20); BUN (Urea Nitrogen) 41 mg/dL (8.4-25.7); Calc. Creatinine Clearance 54 mL/min (70-130); Calcium 7.6 mg/dL (7.8-10.44); Carbon Dioxide 29 mmol/L (23-31); Chloride 101 mmol/L (98-107); Estimated GFR 46; Glucose 220 mg/dL (83-110); Potassium 3.7 mmol/L (3.5-5.1); Sodium 140 mmol/L (136-145)
[2023-08-27] MEDS ORDERED: predniSONE 20 MG TAB PO SCH (08:00)
[2023-08-27] MEDS: Tamsulosin HCl 0.4 MG CAP PO SCH (08:30)
[2023-08-27] MEDS: Amlodipine 5 MG TAB PO SCH (08:30)
[2023-08-27] MEDS: Saccharomyces boulardii 250 MG CAP PO SCH (08:30)
[2023-08-27] MEDS: Dicyclomine 10 MG CAP PO SCH ×4 (08:30→20:43)
[2023-08-27] MEDS: Vancomycin HCl 125 MG Capsule PO SCH ×4 (08:30→20:43)
[2023-08-27] MEDS: Furosemide 40 MG (4 mL) VIAL IVP SCH (08:30)
[2023-08-27] MEDS: Heparin 5,000 UNITS/ML VIAL SC SCH ×2 (08:30→20:43)
[2023-08-27] MEDS: Allopurinol 100 MG TAB PO SCH (08:30)
[2023-08-27] MEDS: Hydroxychloroquine Sulfate 200 MG TAB PO SCH (08:31)
[2023-08-27] MEDS: Gabapentin 300 MG CAP PO SCH (20:42)
[2023-08-27] MEDS: Melatonin 3 MG TAB PO PRN (20:43)
[2023-08-28] MEDS: HumaLOG 300 UNITS/3 ML VIAL SC PRN ×2 (05:07→12:23)
[2023-08-28 07:45] LABS: #Monocytes 2.5 thou/uL (0.11-0.59); #Neutrophils 12.4 thou/uL (1.40-6.50); %Basophils 0.2 % (0.0-1.0); %Lymphocytes 9.5 % (21.0-51.0); %Neutrophils 74.4 % (42.0-75.0); Hematocrit 44.3 % (42.0-52.0); Hemoglobin 14.3 g/dL (14.0-18.0); Mean Corpuscular HGB CONC 32.3 g/dL (32.0-36.0); Mean Corpuscular Volume 93.1 fl (78.0-98.0); Mean Platelet Volume 10.3 fL (7.4-10.4); Platelet Count 369 10x3/uL (130-400); RBC Distribution Width 16.2 % (11.5-14.5); Red Blood Cell (RBC) Count 4.76 mill/uL (4.70-6.10); White Blood Cell (WBC) Count 16.6 10x3/uL (4.8-10.8)
[2023-08-28 08:10] LABS: Anion Gap 13 mmol/L (10-20); BUN (Urea Nitrogen) 42 mg/dL (8.4-25.7); Calc. Creatinine Clearance 56 mL/min (70-130); Calcium 7.6 mg/dL (7.8-10.44); Carbon Dioxide 26 mmol/L (23-31); Chloride 102 mmol/L (98-107); Estimated GFR 50; Glucose 142 mg/dL (83-110); Potassium 3.9 mmol/L (3.5-5.1); Sodium 137 mmol/L (136-145)
[2023-08-28] MEDS: Tamsulosin HCl 0.4 MG CAP PO SCH (08:33)
[2023-08-28] MEDS: Amlodipine 5 MG TAB PO SCH (08:33)
[2023-08-28] MEDS: Saccharomyces boulardii 250 MG CAP PO SCH (08:34)
[2023-08-28] MEDS: Dicyclomine 10 MG CAP PO SCH ×2 (08:34→12:24)
[2023-08-28] MEDS: Heparin 5,000 UNITS/ML VIAL SC SCH (08:34)
[2023-08-28] MEDS: Vancomycin HCl 125 MG Capsule PO SCH ×2 (08:34→12:24)
[2023-08-28] MEDS: Hydroxychloroquine Sulfate 200 MG TAB PO SCH (08:34)
[2023-08-28] MEDS: Furosemide 40 MG (4 mL) VIAL IVP SCH (08:34)
[2023-08-28 08:44] VITALS: BP 117/68
[2023-08-28 09:33] VITALS: TEMP 98.5
== END 2023-08-28 16:14 | DRG 871 ==
LOC: 2NO 11:08 → T4-A 08-20 13:34
PROVIDERS: ADMIT Internal Medicine; ATTEND Family Medicine
PROC: 3E03329 Introduction of Other Anti-infective into Peripheral Vein, Percutaneous Approach (ICD-10-PCS; 2023-08-14)
PROC: 30233J1 Transfusion of Nonautologous Serum Albumin into Peripheral Vein, Percutaneous Approach (ICD-10-PCS; principal; 2023-08-22)
DX: A41.9 Sepsis, unspecified organism (principal); J96.01 Acute respiratory failure with hypoxia; N17.0 Acute kidney failure with tubular necrosis; A04.72 Enterocolitis due to Clostridium difficile, not specified as recurrent; E87.1 Hypo-osmolality and hyponatremia; E87.20 Acidosis, unspecified; J90 Pleural effusion, not elsewhere classified; M10.9 Gout, unspecified; Z79.899 Other long term (current) drug therapy; K52.9 Noninfective gastroenteritis and colitis, unspecified; E87.5 Hyperkalemia; N18.30 Chronic kidney disease, stage 3 unspecified; E88.09 Other disorders of plasma-protein metabolism, not elsewhere classified; I12.9 Hypertensive chronic kidney disease with stage 1 through stage 4 chronic kidney disease, or unspecified chronic kidney disease
CPT/HCPCS: 36415; 36416; 70551; 71045; 71250; 74176; 80048; 80053; 82040; 83036; 83605; 83630; 83735; 84100; 85025; 86140; 87324; 87328; 87329; 87449; 87507; 93306; 94640; J0612; J0613; J0692; J0696; J1644; J1815; J1940; J2272; J2543; J3490; J7042; J7050; J7120; J7512; J7620; P9047

== ENCOUNTER 2023-09-14 20:27 | Inpatient (IN) | payer MEDICARE ==
[2023-09-14 23:15] LABS: Base Excess -3.2 mEq/L (-2.0 to +3.0); Calcium, Ionized (venous) 0.94 mmol/L (1.16-1.32); Chloride (VBG) 102 mmol/L (98-106); Hematocrit-VBG 34 % (42.0-52.0); Hemoglobin (Hb) 11.5 g/dL (12.6-17.4); Potassium (VBG) 4.37 mmol/L (3.70-5.30); pH (venous) 7.397 (7.32-7.43)
[2023-09-14] MEDS ORDERED: Acetaminophen 650 MG Suppository PR PRN (23:17)
[2023-09-14] MEDS ORDERED: Ondansetron PF 4 MG/2 ML Vial IVP PRN (23:17)
[2023-09-14 23:25] LABS: Hematocrit 31.9 % (42.0-52.0); Hemoglobin 10.2 g/dL (14.0-18.0); Manual Diff?? YES; Mean Corpuscular Hemoglobin 30.2 pg (27.0-31.0); Mean Corpuscular Volume 94.4 fl (78.0-98.0); Mean Platelet Volume 10.7 fL (7.4-10.4); Platelet Count 262 10x3/uL (130-400); RBC Distribution Width 15.2 % (11.5-14.5); Red Blood Cell (RBC) Count 3.38 mill/uL (4.70-6.10); White Blood Cell (WBC) Count 19.5 10x3/uL (4.8-10.8)
[2023-09-14 23:26] LABS: Delete Auto Diff?? YES
[2023-09-14 23:29] LABS: Lactic Acid 2.8 mmol/L (0.5-2.2)
[2023-09-14 23:39] LABS: Anion Gap 15 mmol/L (10-20); BUN (Urea Nitrogen) 28 mg/dL (8.4-25.7); Calc. Creatinine Clearance 24 mL/min (70-130); Calcium 7.2 mg/dL (7.8-10.44); Carbon Dioxide 20 mmol/L (23-31); Chloride 104 mmol/L (98-107); Estimated GFR 21; Glucose 94 mg/dL (83-110); Potassium 4.3 mmol/L (3.5-5.1); Sodium 135 mmol/L (136-145)
[2023-09-14 23:46] LABS: Band 11 % (5-11); CellaVision Operator ID lab.abc; Lymphocytes 10 % (21-51); Monocytes 5 % (0-10); Neutrophil 75 % (42-75); Platelet Adequacy Comment Platelets Normal; RBC Morphology Within Normal Limits; Smudge Cells 6.9 %; Total Cell Count 102
[2023-09-15 01:16] LABS: Magnesium 1.1 mg/dL (1.6-2.6)
[2023-09-15] MEDS: Vancomycin HCl 125 MG Capsule PO SCH (01:28)
[2023-09-15] MEDS: metroNIDAZOLE 500 MG in Premix 1 BAG IVPB SCH (01:29)
[2023-09-15] MEDS: Sodium Chloride 0.9% 1,000 ML IV SCH (01:33)
[2023-09-15] MEDS: Sodium Chloride 0.9% 500 ML IV SCH (01:34)
[2023-09-15] MEDS: NOREPINEPHRINE 8 MG/250 ML-D5W 250 ML IVPB SCH (01:34)
[2023-09-15] MEDS: NOREPINEPHRINE 8 MG/250 ML-D5W 250 ML ONE (01:37)
[2023-09-15] MEDS: Magnesium 2 GM/50 ML(in water) 2 GM in Premix 1 BAG IVPB SCH (04:00)
[2023-09-15] MEDS ORDERED: Electrolyte Replacement Protocol 1 EACH FS SCH (04:45)
[2023-09-15 05:41] LABS: Hematocrit 34.3 % (42.0-52.0); Hemoglobin 10.9 g/dL (14.0-18.0); Manual Diff?? YES; Mean Corpuscular HGB CONC 31.8 g/dL (32.0-36.0); Mean Corpuscular Hemoglobin 29.8 pg (27.0-31.0); Mean Corpuscular Volume 93.7 fl (78.0-98.0); Mean Platelet Volume 10.5 fL (7.4-10.4); Platelet Count 293 10x3/uL (130-400); RBC Distribution Width 15.2 % (11.5-14.5); Red Blood Cell (RBC) Count 3.66 mill/uL (4.70-6.10); White Blood Cell (WBC) Count 20.3 10x3/uL (4.8-10.8)
[2023-09-15 05:48] LABS: Delete Auto Diff?? YES
[2023-09-15 06:16] LABS: Band 15 % (5-11); CellaVision Operator ID lab.abc; Eosinophils 1 % (0-10); Hypochromia SLIGHT = 6-15 cells HPF (0-5); Lymphocytes 3 % (21-51); Monocytes 8 % (0-10); Neutrophil 73 % (42-75); Platelet Adequacy Comment Platelets Normal; Total Cell Count 100
[2023-09-15 06:30] LABS: Lactic Acid 0.8 mmol/L (0.5-2.2)
[2023-09-15 06:34] LABS: Anion Gap 15 mmol/L (10-20); BUN (Urea Nitrogen) 27 mg/dL (8.4-25.7); Calc. Creatinine Clearance 28 mL/min (70-130); Calcium 7.2 mg/dL (7.8-10.44); Carbon Dioxide 17 mmol/L (23-31); Chloride 108 mmol/L (98-107); Estimated GFR 24; Glucose 104 mg/dL (83-110); Magnesium 1.9 mg/dL (1.6-2.6); Potassium 3.6 mmol/L (3.5-5.1); Sodium 136 mmol/L (136-145)
[2023-09-15 07:01] LABS: Phosphorus 3.7 mg/dL (2.3-4.7)
[2023-09-15 07:03] LABS: CK (CPK) 132 U/L (30-200)
[2023-09-15] MEDS: Pantoprazole 40 MG VIAL IVP SCH (08:34)
[2023-09-15] MEDS: Heparin 5,000 UNITS/ML VIAL SC SCH (08:34)
[2023-09-15] MEDS: FLU VACC QS2023(65UP)/MF59C/PF 60 MCG/0.5 ML SYRINGE IM ONE (08:35)
[2023-09-15 17:51] LABS: Campy jejuni + coli by PCR Negative (Negative); STEC Shiga Toxin 1+2 Negative (Negative); Salmonella spp. by PCR Negative (Negative); Shigella spp + EIEC by PCR Negative (Negative)
[2023-09-15] MEDS: Gabapentin 300 MG CAP PO SCH (20:03)
[2023-09-16 06:26] LABS: Hematocrit 34.8 % (42.0-52.0); Hemoglobin 10.9 g/dL (14.0-18.0); Manual Diff?? YES; Mean Corpuscular HGB CONC 31.3 g/dL (32.0-36.0); Mean Corpuscular Hemoglobin 29.5 pg (27.0-31.0); Mean Corpuscular Volume 94.3 fl (78.0-98.0); Mean Platelet Volume 10.9 fL (7.4-10.4); Platelet Count 321 10x3/uL (130-400); RBC Distribution Width 15.1 % (11.5-14.5); Red Blood Cell (RBC) Count 3.69 mill/uL (4.70-6.10); White Blood Cell (WBC) Count 20.9 10x3/uL (4.8-10.8)
[2023-09-16 06:41] LABS: Delete Auto Diff?? YES
[2023-09-16 06:49] LABS: ALT (SGPT) 31 U/L (8-55); AST (SGOT) 39 U/L (5-34); Albumin 2.7 g/dL (3.4-4.8); Alkaline Phosphatase 70 U/L (40-110); Anion Gap 13 mmol/L (10-20); BUN (Urea Nitrogen) 24 mg/dL (8.4-25.7); Bilirubin, Total 0.5 mg/dL (0.2-1.2); Calc. Creatinine Clearance 45 mL/min (70-130); Carbon Dioxide 15 mmol/L (23-31); Chloride 111 mmol/L (98-107); Estimated GFR 42; Globulin 2.2 g/dL (2.4-3.5); Glucose 62 mg/dL (83-110); Magnesium 1.9 mg/dL (1.6-2.6); Potassium 3.4 mmol/L (3.5-5.1); Protein, Total 4.9 g/dL (5.8-8.1); Sodium 136 mmol/L (136-145)
[2023-09-16 07:56] LABS: #Basophils 0.1 thou/uL (0.0-0.2); #Eosinphils 0.1 thou/uL (0.0-0.7); #Monocytes 2.5 thou/uL (0.11-0.59); %Basophils 0.3 % (0.0-1.0); %Eosinophils 0.4 % (0.0-10.0); %Lymphocytes 6.7 % (21.0-51.0); %Monocytes 11.7 % (0.0-10.0); %Neutrophils 80.3 % (42.0-75.0)
[2023-09-16 08:04] LABS: Band 14 % (5-11); CellaVision Operator ID LAB.KW3; Lymphocytes 6 % (21-51); Monocytes 3 % (0-10); Neutrophil 78 % (42-75); Platelet Adequacy Comment Platelets Normal; RBC Morphology Within Normal Limits; Total Cell Count 102
[2023-09-16] MEDS: Hydroxychloroquine Sulfate 200 MG TAB PO SCH (08:59)
[2023-09-16] MEDS: Allopurinol 100 MG TAB PO SCH (08:59)
[2023-09-16] MEDS: Atorvastatin Calcium 10 MG TAB PO SCH (08:59)
[2023-09-16] MEDS: Tamsulosin HCl 0.4 MG CAP PO SCH (08:59)
[2023-09-16] MEDS: Saccharomyces boulardii 250 MG CAP PO SCH (08:59)
[2023-09-16 12:57] LABS: Fluid, pH - Pleural Fld 7.437 (7.60 - 7.66)
[2023-09-16] MEDS: Lidocaine 1% (PF) 30 ML VIAL SC SCH (13:04)
[2023-09-16] MEDS: Metamucil PACK PO SCH (13:16)
[2023-09-16 13:42] LABS: RBC Count-Automated (BF) 1732 /cu.mm; WBC/Nucleated-Auto (BF) 1385 /cu.mm
[2023-09-16 13:43] LABS: BF Color Yellow; Body Fluid Source Pleural Fluid; Clarity Hazy (Clear); Tube # EDTA
[2023-09-16 13:57] LABS: Pleural Fluid, Amylase Less than 30 U/L (Not Available); Pleural Fluid, Glucose 81 mg/dL; Pleural Fluid, LDH 146 U/L (Not Available)
[2023-09-16 14:49] LABS: BF Segmented Neutrophils 48 %; Cell Count Non Hematic 30 %; Eosinophils 2 %; Lymphocytes 19 %
[2023-09-16] MEDS: Acetaminophen 325 MG TAB PO PRN (17:25)
[2023-09-16] MEDS: Morphine 2 MG/ML VIAL SLOW IVP PRN (19:06)
[2023-09-16] MEDS: Fidaxomicin 200 MG TAB PO SCH (20:23)
[2023-09-17 05:25] LABS: Delete Auto Diff?? YES; Hematocrit 36.8 % (42.0-52.0); Hemoglobin 11.8 g/dL (14.0-18.0); Manual Diff?? YES; Mean Corpuscular HGB CONC 32.1 g/dL (32.0-36.0); Mean Corpuscular Hemoglobin 30.1 pg (27.0-31.0); Mean Corpuscular Volume 93.9 fl (78.0-98.0); Mean Platelet Volume 10.8 fL (7.4-10.4); Platelet Count 369 10x3/uL (130-400); RBC Distribution Width 15.4 % (11.5-14.5); Red Blood Cell (RBC) Count 3.92 mill/uL (4.70-6.10); White Blood Cell (WBC) Count 20.2 10x3/uL (4.8-10.8)
[2023-09-17 05:52] LABS: ALT (SGPT) 25 U/L (8-55); AST (SGOT) 28 U/L (5-34); Albumin 2.7 g/dL (3.4-4.8); Alkaline Phosphatase 71 U/L (40-110); Anion Gap 11 mmol/L (10-20); BUN (Urea Nitrogen) 20 mg/dL (8.4-25.7); Bilirubin, Total 0.4 mg/dL (0.2-1.2); Calc. Creatinine Clearance 58 mL/min (70-130); Calcium 7.5 mg/dL (7.8-10.44); Carbon Dioxide 19 mmol/L (23-31); Chloride 112 mmol/L (98-107); Estimated GFR 56; Globulin 2.2 g/dL (2.4-3.5); Glucose 60 mg/dL (83-110); Potassium 3.3 mmol/L (3.5-5.1); Protein, Total 4.9 g/dL (5.8-8.1); Sodium 139 mmol/L (136-145)
[2023-09-17 05:56] LABS: Band 36 % (5-11); CellaVision Operator ID LAB.CLH1; Hypochromia SLIGHT = 6-15 cells HPF (0-5); Lymphocytes 1 % (21-51); Monocytes 12 % (0-10); Neutrophil 51 % (42-75); Platelet Adequacy Comment Platelets Normal; Polychromasia SLIGHT = 2-3 cells HPF (0-2); Total Cell Count 101
[2023-09-17] MEDS: Metamucil PACK PO SCH (08:29)
[2023-09-17] MEDS: Dextrose 5 %-0.45 % NaCl 1,000 ML IV SCH (08:29)
[2023-09-17] MEDS: Potassium Chloride 20 MEQ in Premix 1 BAG IVPB SCH (08:30)
[2023-09-17] MEDS: Potassium Chloride 20 MEQ in Sodium Chloride 0.9% 250 ML 250 ML IVPB SCH (09:52)
[2023-09-18 05:30] LABS: #Basophils 0.1 thou/uL (0.0-0.2); #Monocytes 2.1 thou/uL (0.11-0.59); #Neutrophils 12.6 thou/uL (1.40-6.50); %Basophils 0.6 % (0.0-1.0); %Eosinophils 0.2 % (0.0-10.0); %Lymphocytes 6.6 % (21.0-51.0); %Monocytes 12.7 % (0.0-10.0); %Neutrophils 77.6 % (42.0-75.0); Hematocrit 37.2 % (42.0-52.0); Hemoglobin 11.9 g/dL (14.0-18.0); Mean Corpuscular Hemoglobin 29.8 pg (27.0-31.0); Mean Corpuscular Volume 93.2 fl (78.0-98.0); Mean Platelet Volume 10.6 fL (7.4-10.4); Platelet Count 406 10x3/uL (130-400); RBC Distribution Width 15.2 % (11.5-14.5); Red Blood Cell (RBC) Count 3.99 mill/uL (4.70-6.10); White Blood Cell (WBC) Count 16.3 10x3/uL (4.8-10.8)
[2023-09-18 05:53] LABS: ALT (SGPT) 20 U/L (8-55); AST (SGOT) 26 U/L (5-34); Albumin 2.9 g/dL (3.4-4.8); Alkaline Phosphatase 72 U/L (40-110); Anion Gap 14 mmol/L (10-20); BUN (Urea Nitrogen) 12 mg/dL (8.4-25.7); Bilirubin, Total 0.4 mg/dL (0.2-1.2); Calc. Creatinine Clearance 64 mL/min (70-130); Calcium 7.7 mg/dL (7.8-10.44); Carbon Dioxide 16 mmol/L (23-31); Chloride 110 mmol/L (98-107); Estimated GFR 67; Globulin 2.4 g/dL (2.4-3.5); Glucose 100 mg/dL (83-110); Potassium 3.2 mmol/L (3.5-5.1); Protein, Total 5.3 g/dL (5.8-8.1); Sodium 137 mmol/L (136-145)
[2023-09-19 05:11] LABS: #Basophils 0.2 thou/uL (0.0-0.2); #Eosinphils 0.1 thou/uL (0.0-0.7); #Monocytes 2.8 thou/uL (0.11-0.59); #Neutrophils 11.3 thou/uL (1.40-6.50); %Eosinophils 0.3 % (0.0-10.0); %Lymphocytes 9.5 % (21.0-51.0); %Monocytes 16.8 % (0.0-10.0); %Neutrophils 68.6 % (42.0-75.0); Hematocrit 39.3 % (42.0-52.0); Hemoglobin 12.5 g/dL (14.0-18.0); Mean Corpuscular HGB CONC 31.8 g/dL (32.0-36.0); Mean Corpuscular Hemoglobin 29.1 pg (27.0-31.0); Mean Corpuscular Volume 91.4 fl (78.0-98.0); Mean Platelet Volume 10.6 fL (7.4-10.4); Platelet Count 371 10x3/uL (130-400); RBC Distribution Width 15.7 % (11.5-14.5); White Blood Cell (WBC) Count 16.4 10x3/uL (4.8-10.8)
[2023-09-19 05:40] LABS: ALT (SGPT) 16 U/L (8-55); AST (SGOT) 28 U/L (5-34); Albumin 2.8 g/dL (3.4-4.8); Alkaline Phosphatase 61 U/L (40-110); Anion Gap 11 mmol/L (10-20); BUN (Urea Nitrogen) 8 mg/dL (8.4-25.7); Bilirubin, Total 0.4 mg/dL (0.2-1.2); Calc. Creatinine Clearance 71 mL/min (70-130); Calcium 7.7 mg/dL (7.8-10.44); Carbon Dioxide 19 mmol/L (23-31); Chloride 108 mmol/L (98-107); Estimated GFR 77; Globulin 2.4 g/dL (2.4-3.5); Glucose 140 mg/dL (83-110); Protein, Total 5.2 g/dL (5.8-8.1); Sodium 135 mmol/L (136-145)
[2023-09-19] MEDS: GUAIFENESIN SF SOLN 200 MG/10 ML UDCUP PO PRN (21:54)
[2023-09-19] MEDS: traMADol HCl 50 MG TAB PO SCH (21:54)
[2023-09-20] MEDS: methylPREDNISolone Sod Succ 40 MG VIAL IVP SCH (16:23)
[2023-09-21] MEDS: Enoxaparin 40 MG (0.4 mL) SYRINGE SC SCH (08:26)
[2023-09-22 06:26] LABS: Hematocrit 36.3 % (42.0-52.0); Hemoglobin 11.9 g/dL (14.0-18.0); Manual Diff?? YES; Mean Corpuscular HGB CONC 32.8 g/dL (32.0-36.0); Mean Corpuscular Hemoglobin 28.9 pg (27.0-31.0); Mean Corpuscular Volume 88.1 fl (78.0-98.0); Mean Platelet Volume 10.8 fL (7.4-10.4); Platelet Count 389 10x3/uL (130-400); RBC Distribution Width 15.2 % (11.5-14.5); Red Blood Cell (RBC) Count 4.12 mill/uL (4.70-6.10); White Blood Cell (WBC) Count 15.6 10x3/uL (4.8-10.8)
[2023-09-22 06:35] LABS: Delete Auto Diff?? YES
[2023-09-22 06:56] LABS: ALT (SGPT) 16 U/L (8-55); AST (SGOT) 28 U/L (5-34); Albumin 2.6 g/dL (3.4-4.8); Alkaline Phosphatase 60 U/L (40-110); Anion Gap 11 mmol/L (10-20); BUN (Urea Nitrogen) 11 mg/dL (8.4-25.7); Bilirubin, Total 0.3 mg/dL (0.2-1.2); Calc. Creatinine Clearance 87 mL/min (70-130); Calcium 7.4 mg/dL (7.8-10.44); Carbon Dioxide 24 mmol/L (23-31); Chloride 108 mmol/L (98-107); Estimated GFR 88; Globulin 2.2 g/dL (2.4-3.5); Glucose 192 mg/dL (83-110); Potassium 2.7 mmol/L (3.5-5.1); Protein, Total 4.8 g/dL (5.8-8.1); Sodium 140 mmol/L (136-145)
[2023-09-22 07:44] LABS: Band 6 % (5-11); CellaVision Operator ID LAB.KW3; Lymphocytes 10 % (21-51); Monocytes 5 % (0-10); Neutrophil 77 % (42-75); Platelet Adequacy Comment Platelets Normal; RBC Morphology Within Normal Limits; Reactive Lymphocytes 2 % (0-10); Total Cell Count 101
[2023-09-22] MEDS: Potassium Chloride 20 MEQ in Premix 1 BAG IVPB SCH (20:52)
[2023-09-22] MEDS: traMADol HCl 50 MG TAB PO PRN (20:59)
[2023-09-23 07:18] LABS: #Eosinphils 0.1 thou/uL (0.0-0.7); %Basophils 0.2 % (0.0-1.0); %Eosinophils 0.4 % (0.0-10.0); %Lymphocytes 13.6 % (21.0-51.0); %Monocytes 6.3 % (0.0-10.0); %Neutrophils 76.7 % (42.0-75.0); Hematocrit 36.4 % (42.0-52.0); Mean Corpuscular Hemoglobin 29.6 pg (27.0-31.0); Mean Corpuscular Volume 89.7 fl (78.0-98.0); Mean Platelet Volume 10.3 fL (7.4-10.4); Platelet Count 363 10x3/uL (130-400); RBC Distribution Width 15.6 % (11.5-14.5); Red Blood Cell (RBC) Count 4.06 mill/uL (4.70-6.10); White Blood Cell (WBC) Count 15.7 10x3/uL (4.8-10.8)
[2023-09-23 07:38] LABS: ALT (SGPT) 24 U/L (8-55); AST (SGOT) 37 U/L (5-34); Albumin 2.6 g/dL (3.4-4.8); Alkaline Phosphatase 92 U/L (40-110); Anion Gap 11 mmol/L (10-20); BUN (Urea Nitrogen) 9 mg/dL (8.4-25.7); Bilirubin, Total 0.5 mg/dL (0.2-1.2); Calc. Creatinine Clearance 84 mL/min (70-130); Calcium 7.4 mg/dL (7.8-10.44); Carbon Dioxide 25 mmol/L (23-31); Chloride 108 mmol/L (98-107); Estimated GFR 85; Globulin 2.1 g/dL (2.4-3.5); Glucose 130 mg/dL (83-110); Protein, Total 4.7 g/dL (5.8-8.1); Sodium 141 mmol/L (136-145)
[2023-09-23 07:44] LABS: Potassium 2.6 mmol/L (3.5-5.1)
[2023-09-23] MEDS: Potassium Chloride 20 MEQ TAB PO SCH (08:40)
[2023-09-23] MEDS: Colchicine 0.6 MG TAB PO SCH (10:41)
[2023-09-23 14:43] LABS: Potassium 3.5 mmol/L (3.5-5.1)
[2023-09-24 05:41] LABS: #Basophils 0.1 thou/uL (0.0-0.2); #Eosinphils 0.1 thou/uL (0.0-0.7); #Monocytes 1.2 thou/uL (0.11-0.59); #Neutrophils 12.8 thou/uL (1.40-6.50); %Basophils 0.6 % (0.0-1.0); %Eosinophils 0.5 % (0.0-10.0); %Lymphocytes 14.2 % (21.0-51.0); %Monocytes 7.3 % (0.0-10.0); %Neutrophils 75.5 % (42.0-75.0); Hematocrit 39.1 % (42.0-52.0); Hemoglobin 12.4 g/dL (14.0-18.0); Mean Corpuscular HGB CONC 31.7 g/dL (32.0-36.0); Mean Corpuscular Hemoglobin 29.4 pg (27.0-31.0); Mean Platelet Volume 11.2 fL (7.4-10.4); Platelet Count 273 10x3/uL (130-400); RBC Distribution Width 16.1 % (11.5-14.5); Red Blood Cell (RBC) Count 4.22 mill/uL (4.70-6.10); White Blood Cell (WBC) Count 16.9 10x3/uL (4.8-10.8)
[2023-09-24 05:42] LABS: Mean Corpuscular Volume 92.7 fl (78.0-98.0)
[2023-09-24 05:51] LABS: ALT (SGPT) 18 U/L (8-55); AST (SGOT) 28 U/L (5-34); Albumin 2.4 g/dL (3.4-4.8); Alkaline Phosphatase 84 U/L (40-110); Anion Gap 11 mmol/L (10-20); BUN (Urea Nitrogen) 7 mg/dL (8.4-25.7); Bilirubin, Total 0.5 mg/dL (0.2-1.2); Calc. Creatinine Clearance 91 mL/min (70-130); Calcium 7.3 mg/dL (7.8-10.44); Carbon Dioxide 22 mmol/L (23-31); Chloride 110 mmol/L (98-107); Estimated GFR 90; Globulin 2.2 g/dL (2.4-3.5); Glucose 113 mg/dL (83-110); Potassium 3.4 mmol/L (3.5-5.1); Protein, Total 4.6 g/dL (5.8-8.1); Sodium 140 mmol/L (136-145)
[2023-09-24] MEDS: predniSONE 20 MG TAB PO SCH (09:06)
[2023-09-24] MEDS: Potassium Chloride 20 MEQ TAB PO SCH (17:29)
[2023-09-25 05:01] LABS: #Monocytes 1.2 thou/uL (0.11-0.59); %Basophils 0.2 % (0.0-1.0); %Eosinophils 0.1 % (0.0-10.0); %Lymphocytes 9.5 % (21.0-51.0); %Monocytes 5.7 % (0.0-10.0); Hemoglobin 13.6 g/dL (14.0-18.0); Mean Corpuscular HGB CONC 32.4 g/dL (32.0-36.0); Mean Corpuscular Hemoglobin 29.4 pg (27.0-31.0); Mean Corpuscular Volume 90.9 fl (78.0-98.0); Mean Platelet Volume 10.7 fL (7.4-10.4); Platelet Count 369 10x3/uL (130-400); RBC Distribution Width 15.7 % (11.5-14.5); Red Blood Cell (RBC) Count 4.62 mill/uL (4.70-6.10); White Blood Cell (WBC) Count 21.7 10x3/uL (4.8-10.8)
[2023-09-25 05:25] LABS: ALT (SGPT) 15 U/L (8-55); AST (SGOT) 25 U/L (5-34); Albumin 2.2 g/dL (3.4-4.8); Alkaline Phosphatase 73 U/L (40-110); Anion Gap 13 mmol/L (10-20); BUN (Urea Nitrogen) 7 mg/dL (8.4-25.7); Bilirubin, Total 0.4 mg/dL (0.2-1.2); Calc. Creatinine Clearance 92 mL/min (70-130); Calcium 7.2 mg/dL (7.8-10.44); Carbon Dioxide 23 mmol/L (23-31); Chloride 107 mmol/L (98-107); Estimated GFR 91; Globulin 2.5 g/dL (2.4-3.5); Glucose 141 mg/dL (83-110); Potassium 3.8 mmol/L (3.5-5.1); Protein, Total 4.7 g/dL (5.8-8.1); Sodium 139 mmol/L (136-145)
[2023-09-26 05:27] LABS: #Basophils 0.1 thou/uL (0.0-0.2); #Monocytes 1.9 thou/uL (0.11-0.59); #Neutrophils 16.5 thou/uL (1.40-6.50); %Basophils 0.2 % (0.0-1.0); %Eosinophils 0.2 % (0.0-10.0); %Lymphocytes 12.1 % (21.0-51.0); %Monocytes 8.7 % (0.0-10.0); %Neutrophils 77.9 % (42.0-75.0); Hematocrit 41.5 % (42.0-52.0); Hemoglobin 13.9 g/dL (14.0-18.0); Mean Corpuscular HGB CONC 33.5 g/dL (32.0-36.0); Mean Corpuscular Hemoglobin 29.6 pg (27.0-31.0); Mean Corpuscular Volume 88.5 fl (78.0-98.0); Mean Platelet Volume 10.9 fL (7.4-10.4); Platelet Count 373 10x3/uL (130-400); RBC Distribution Width 15.7 % (11.5-14.5); Red Blood Cell (RBC) Count 4.69 mill/uL (4.70-6.10); White Blood Cell (WBC) Count 21.2 10x3/uL (4.8-10.8)
[2023-09-26 06:01] LABS: Anion Gap 12 mmol/L (10-20); BUN (Urea Nitrogen) 11 mg/dL (8.4-25.7); Calc. Creatinine Clearance 76 mL/min (70-130); Calcium 7.5 mg/dL (7.8-10.44); Carbon Dioxide 22 mmol/L (23-31); Chloride 108 mmol/L (98-107); Estimated GFR 78; Glucose 144 mg/dL (83-110); Magnesium 1.5 mg/dL (1.6-2.6); Phosphorus 3.1 mg/dL (2.3-4.7); Potassium 3.5 mmol/L (3.5-5.1); Sodium 138 mmol/L (136-145)
[2023-09-26] MEDS: Ondansetron ODT 4 MG TAB PO PRN (08:04)
[2023-09-26] MEDS: Magnesium 2 GM/50 ML(in water) 2 GM in Premix 1 BAG IVPB SCH (10:57)
[2023-09-26] MEDS: Potassium Chloride 20 MEQ TAB PO SCH (10:57)
[2023-09-26] MEDS: GoLYTELY 4,000 ml Bottle PO SCH (18:20)
[2023-09-27] MEDS ORDERED: PROPOFOL 20 ML ONE (09:31)
[2023-09-27] MEDS ORDERED: Lidocaine 1% PF 5 ML VIAL ONE (09:31)
[2023-09-27] MEDS ORDERED: fentaNYL 50 mcg/mL 1 mL Vial ONE (10:01)
[2023-09-27] MEDS: Hydroxychloroquine Sulfate 200 MG TAB PO SCH (12:18)
[2023-09-28 14:44] VITALS: BMI 29.9
[2023-09-28] MEDS: Melatonin 3 MG TAB PO PRN (20:38)
[2023-09-29 05:16] LABS: Anion Gap 17 mmol/L (10-20); BUN (Urea Nitrogen) 8 mg/dL (8.4-25.7); Calc. Creatinine Clearance 82 mL/min (70-130); Calcium 7.3 mg/dL (7.8-10.44); Carbon Dioxide 18 mmol/L (23-31); Chloride 107 mmol/L (98-107); Estimated GFR 86; Potassium 3.7 mmol/L (3.5-5.1); Sodium 138 mmol/L (136-145)
[2023-09-29 05:28] LABS: Critical Call Chemistry MANOR.REA@ 0528; Glucose 41 mg/dL (83-110)
[2023-09-29 08:21] LABS: Hematocrit 37.7 % (42.0-52.0); Hemoglobin 12.2 g/dL (14.0-18.0); Mean Corpuscular HGB CONC 32.4 g/dL (32.0-36.0); Mean Corpuscular Hemoglobin 29.5 pg (27.0-31.0); Mean Corpuscular Volume 91.3 fl (78.0-98.0); Mean Platelet Volume 10.1 fL (7.4-10.4); Platelet Count 328 10x3/uL (130-400); RBC Distribution Width 15.7 % (11.5-14.5); Red Blood Cell (RBC) Count 4.13 mill/uL (4.70-6.10); White Blood Cell (WBC) Count 18.9 10x3/uL (4.8-10.8)
[2023-09-29] MEDS: Dextrose 50% Abboject 50 ML SYRINGE SLOW IVP ONE (12:10)
[2023-09-30 06:10] LABS: #Basophils 0.1 thou/uL (0.0-0.2); #Eosinphils 0.1 thou/uL (0.0-0.7); #Monocytes 1.4 thou/uL (0.11-0.59); #Neutrophils 10.7 thou/uL (1.40-6.50); %Basophils 0.6 % (0.0-1.0); %Eosinophils 0.5 % (0.0-10.0); %Lymphocytes 6.9 % (21.0-51.0); %Monocytes 10.8 % (0.0-10.0); %Neutrophils 80.7 % (42.0-75.0); Hematocrit 42.7 % (42.0-52.0); Hemoglobin 13.4 g/dL (14.0-18.0); Mean Corpuscular HGB CONC 31.4 g/dL (32.0-36.0); Mean Corpuscular Hemoglobin 28.9 pg (27.0-31.0); Mean Corpuscular Volume 92.2 fl (78.0-98.0); Mean Platelet Volume 10.5 fL (7.4-10.4); Platelet Count 284 10x3/uL (130-400); RBC Distribution Width 15.8 % (11.5-14.5); Red Blood Cell (RBC) Count 4.63 mill/uL (4.70-6.10); White Blood Cell (WBC) Count 13.2 10x3/uL (4.8-10.8)
[2023-09-30 06:32] LABS: Anion Gap 15 mmol/L (10-20); BUN (Urea Nitrogen) 6 mg/dL (8.4-25.7); Calc. Creatinine Clearance 69 mL/min (70-130); Calcium 7.9 mg/dL (7.8-10.44); Carbon Dioxide 24 mmol/L (23-31); Chloride 105 mmol/L (98-107); Estimated GFR 74; Glucose 104 mg/dL (83-110); Potassium 3.2 mmol/L (3.5-5.1); Sodium 141 mmol/L (136-145)
[2023-09-30] MEDS: Magnesium 2 GM/50 ML(in water) 2 GM in Premix 1 BAG IVPB SCH (11:25)
[2023-09-30] MEDS: Potassium Chloride 20 MEQ TAB PO SCH (11:25)
[2023-09-30 13:30] LABS: SARS-CoV-2 N Gene Positive; SARS-CoV-2 S Gene Negative; SARS-CoV-2 orf1ab Positive
[2023-09-30] MEDS: Benzonatate 100 MG CAP PO PRN (13:48)
[2023-09-30] MEDS: traMADol HCl 50 MG TAB PO PRN (21:46)
[2023-10-01] MEDS: Benzocaine/Menthol 1 LOZ LOZ PO PRN (03:26)
[2023-10-01 04:39] LABS: #Monocytes 1.1 thou/uL (0.11-0.59); #Neutrophils 7.1 thou/uL (1.40-6.50); %Basophils 0.3 % (0.0-1.0); %Eosinophils 0.1 % (0.0-10.0); %Lymphocytes 8.2 % (21.0-51.0); %Monocytes 12.4 % (0.0-10.0); %Neutrophils 78.7 % (42.0-75.0); Hematocrit 36.8 % (42.0-52.0); Hemoglobin 11.7 g/dL (14.0-18.0); Mean Corpuscular HGB CONC 31.8 g/dL (32.0-36.0); Mean Corpuscular Volume 91.3 fl (78.0-98.0); Mean Platelet Volume 10.7 fL (7.4-10.4); Platelet Count 223 10x3/uL (130-400); RBC Distribution Width 15.8 % (11.5-14.5); Red Blood Cell (RBC) Count 4.03 mill/uL (4.70-6.10)
[2023-10-01 04:56] LABS: Anion Gap 10 mmol/L (10-20); BUN (Urea Nitrogen) 6 mg/dL (8.4-25.7); Calc. Creatinine Clearance 73 mL/min (70-130); Calcium 7.4 mg/dL (7.8-10.44); Carbon Dioxide 25 mmol/L (23-31); Chloride 107 mmol/L (98-107); Estimated GFR 79; Glucose 96 mg/dL (83-110); Potassium 3.8 mmol/L (3.5-5.1); Sodium 138 mmol/L (136-145)
[2023-10-01 09:19] LABS: Magnesium 1.9 mg/dL (1.6-2.6)
[2023-10-01] MEDS: Oseltamivir 75 MG CAP PO SCH (12:44)
[2023-10-02 04:46] LABS: #Basophils 0.1 thou/uL (0.0-0.2); #Monocytes 1.1 thou/uL (0.11-0.59); #Neutrophils 6.2 thou/uL (1.40-6.50); %Basophils 0.6 % (0.0-1.0); %Eosinophils 0.2 % (0.0-10.0); %Lymphocytes 16.9 % (21.0-51.0); %Monocytes 11.9 % (0.0-10.0); %Neutrophils 69.9 % (42.0-75.0); Hematocrit 38.2 % (42.0-52.0); Hemoglobin 12.1 g/dL (14.0-18.0); Mean Corpuscular HGB CONC 31.7 g/dL (32.0-36.0); Mean Corpuscular Hemoglobin 29.2 pg (27.0-31.0); Mean Platelet Volume 10.8 fL (7.4-10.4); Platelet Count 174 10x3/uL (130-400); RBC Distribution Width 15.8 % (11.5-14.5); Red Blood Cell (RBC) Count 4.15 mill/uL (4.70-6.10); White Blood Cell (WBC) Count 8.8 10x3/uL (4.8-10.8)
[2023-10-02 05:19] LABS: Anion Gap 11 mmol/L (10-20); BUN (Urea Nitrogen) 8 mg/dL (8.4-25.7); Calc. Creatinine Clearance 79 mL/min (70-130); Calcium 7.2 mg/dL (7.8-10.44); Carbon Dioxide 25 mmol/L (23-31); Chloride 107 mmol/L (98-107); Estimated GFR 90; Glucose 68 mg/dL (83-110); Potassium 3.8 mmol/L (3.5-5.1); Sodium 139 mmol/L (136-145)
[2023-10-02] MEDS: guaiFENesin/Codeine 200 mg/20 mg 10 ml Cup PO PRN (15:47)
[2023-10-03] MEDS: Ibuprofen 600 MG TAB PO PRN (02:25)
[2023-10-03 06:51] LABS: #Monocytes 0.9 thou/uL (0.11-0.59); #Neutrophils 5.4 thou/uL (1.40-6.50); %Basophils 0.5 % (0.0-1.0); %Eosinophils 0.5 % (0.0-10.0); %Monocytes 10.7 % (0.0-10.0); Hematocrit 38.2 % (42.0-52.0); Hemoglobin 11.8 g/dL (14.0-18.0); Mean Corpuscular HGB CONC 30.9 g/dL (32.0-36.0); Mean Corpuscular Hemoglobin 28.4 pg (27.0-31.0); Mean Corpuscular Volume 91.8 fl (78.0-98.0); Mean Platelet Volume 10.9 fL (7.4-10.4); Platelet Count 166 10x3/uL (130-400); RBC Distribution Width 15.7 % (11.5-14.5); Red Blood Cell (RBC) Count 4.16 mill/uL (4.70-6.10); White Blood Cell (WBC) Count 8.7 10x3/uL (4.8-10.8)
[2023-10-03 07:04] LABS: Anion Gap 12 mmol/L (10-20); BUN (Urea Nitrogen) 9 mg/dL (8.4-25.7); Calc. Creatinine Clearance 76 mL/min (70-130); Calcium 7.4 mg/dL (7.8-10.44); Carbon Dioxide 25 mmol/L (23-31); Chloride 104 mmol/L (98-107); Estimated GFR 88; Potassium 3.4 mmol/L (3.5-5.1); Sodium 138 mmol/L (136-145)
[2023-10-03 07:11] LABS: Critical Call Chemistry NUR.ST17 AT 0710; Glucose 49 mg/dL (83-110)
[2023-10-03] MEDS: Sertraline 25 MG TAB PO SCH (08:29)
[2023-10-03] MEDS: Potassium Chloride 20 MEQ TAB PO SCH (09:19)
[2023-10-03] MEDS: Torsemide 20 MG TAB PO SCH (09:19)
[2023-10-03] MEDS: Magnesium 2 GM/50 ML(in water) 2 GM in Premix 1 BAG IVPB SCH (09:23)
[2023-10-03] MEDS: traMADol HCl 50 MG TAB PO PRN (11:28)
[2023-10-04 06:03] LABS: #Monocytes 1.1 thou/uL (0.11-0.59); #Neutrophils 5.9 thou/uL (1.40-6.50); %Basophils 0.3 % (0.0-1.0); %Eosinophils 0.5 % (0.0-10.0); %Lymphocytes 19.9 % (21.0-51.0); %Monocytes 12.6 % (0.0-10.0); %Neutrophils 66.4 % (42.0-75.0); Hematocrit 40.3 % (42.0-52.0); Hemoglobin 12.6 g/dL (14.0-18.0); Mean Corpuscular HGB CONC 31.3 g/dL (32.0-36.0); Mean Corpuscular Hemoglobin 28.8 pg (27.0-31.0); Mean Platelet Volume 10.8 fL (7.4-10.4); Platelet Count 178 10x3/uL (130-400); RBC Distribution Width 15.8 % (11.5-14.5); Red Blood Cell (RBC) Count 4.38 mill/uL (4.70-6.10); White Blood Cell (WBC) Count 8.9 10x3/uL (4.8-10.8)
[2023-10-04 06:49] LABS: Anion Gap 12 mmol/L (10-20); BUN (Urea Nitrogen) 10 mg/dL (8.4-25.7); Calc. Creatinine Clearance 60 mL/min (70-130); Calcium 7.3 mg/dL (7.8-10.44); Carbon Dioxide 26 mmol/L (23-31); Chloride 104 mmol/L (98-107); Estimated GFR 66; Glucose 78 mg/dL (83-110); Sodium 138 mmol/L (136-145)
[2023-10-04 16:31] VITALS: BP 98/62; TEMP 98.3
== END 2023-10-04 18:13 | DRG 871 ==
LOC: 2NO 22:12 → CCU 23:05 → OBSVTOIN 23:17 → 2NO 09-17 16:02 → T4-B 09-20 19:05
PROVIDERS: ADMIT Family Medicine; ATTEND Internal Medicine
PROC: 0W993ZZ Drainage of Right Pleural Cavity, Percutaneous Approach (ICD-10-PCS; principal; 2023-09-17)
PROC: XW0H7X8 Introduction of Broad Consortium Microbiota-based Live Biotherapeutic Suspension into Lower GI, Via Natural or Artificial Opening, New Technology Group 8 (ICD-10-PCS; 2023-09-27)
DX: A41.4 Sepsis due to anaerobes (principal); R65.21 Severe sepsis with septic shock; U07.1 COVID-19; N17.9 Acute kidney failure, unspecified; E87.20 Acidosis, unspecified; J90 Pleural effusion, not elsewhere classified; E87.1 Hypo-osmolality and hyponatremia; A04.71 Enterocolitis due to Clostridium difficile, recurrent; J10.1 Influenza due to other identified influenza virus with other respiratory manifestations; I25.10 Atherosclerotic heart disease of native coronary artery without angina pectoris; M10.9 Gout, unspecified; N20.0 Calculus of kidney; N40.0 Benign prostatic hyperplasia without lower urinary tract symptoms; F32.A Depression, unspecified; E78.5 Hyperlipidemia, unspecified; Z66 Do not resuscitate; I12.9 Hypertensive chronic kidney disease with stage 1 through stage 4 chronic kidney disease, or unspecified chronic kidney disease; N18.30 Chronic kidney disease, stage 3 unspecified; R33.9 Retention of urine, unspecified; E87.6 Hypokalemia; E87.70 Fluid overload, unspecified; Z79.899 Other long term (current) drug therapy
CPT/HCPCS: 36415; 36416; 71045; 74018; 80048; 80053; 82150; 82550; 82805; 82945; 83605; 83615; 83735; 83986; 84100; 84145; 84157; 85025; 85027; 85060; 87040; 87070; 87205; 87324; 87449; 87505; 87633; 87635; 89051; C9113; J1644; J1650; J2272; J2704; J2920; J3010; J3475; J3480; J7042; J7050; J7512; Q0162